=== PATIENT | male | born 1965 | race Caucasian/White ===

== ENCOUNTER 2017-02-04 16:17 | Emergency (ER) | payer OTHER ==
[~2017-02-04] VITALS: Ht 165.1 cm; Wt 110.0 kg
[2017-02-04 16:37] VITALS: BP 156/78; PULSE 80; RESP 18; TEMP 98.1; O2SAT 98
[2017-02-04] MEDS ORDERED: ceFAZolin 2 GM PREMIX 50 ML IV ONE (16:45)
[2017-02-04] MEDS ORDERED: LIDOCAINE HCL 1% 50 ML VIAL INFIL ONE ×2 (16:45)
[2017-02-04] MEDS ORDERED: TETANUS/DIPHTHERIA TOXOID ADULT 0.5 ML VIAL IM ONE (16:45)
[2017-02-04] MEDS ORDERED: ALLO300T2 PO (17:16)
[2017-02-04] MEDS ORDERED: CIPR-9 PO (17:21)
[2017-02-04] MEDS ORDERED: TOBRO LEFT EAR (17:21)
--- NOTE | 2017-02-04 18:29 | RADRPT ---
EXAM DATE/TIME: 02/04/2017 18:04 [place] COMPARISON: No previous studies available for comparison. INDICATIONS : Left hand second digit laceration. Patient states he was cutting a metal pipe. MEDICAL HISTORY : None. SURGICAL HISTORY : None. ENCOUNTER: Initial ACUITY: 1 day PAIN SCORE: 3/10 LOCATION: Left hand, second digit. FINDINGS: Normal bone density. 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 There is soft tissue swe lling identified. No underlying fractures. CONCLUSION: 1. Soft tissue swelling and osteoarthritis. Davie Porter MD on February 04, 2017 at 18:27 Board Certified Radiologist. This report was verified electronically.
[2017-02-04] MEDS ORDERED: CEPH-460 PO (18:44)
[2017-02-04] MEDS ORDERED: HYDR-3533 PO (18:44)
[2017-02-04] MEDS ORDERED: DICL75TA PO (18:44)
--- NOTE | 2017-02-04 18:54 | PD ---
HPI Chief Complaint: Laceration/Skin Injury Time Seen by Provider: 18:44 Travel History International Travel<30 days: No Contact w/Intl Traveler<30days: No Traveled to known affect area: No History of Present Illness HPI 51-year-old male that presents to the ED for evaluation of laceration to the right side of the face as well as to the left hand. Patient comes here by ambulance for evaluation of this. 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 He denies any other injuries. No loss of consciousness. Does not take blood thinners. Unclear if Up-to-date with tetanus. Patient does have a history of ear infections and is taking currently Cipro and eardrops. No chest pain or shortness of breath. Patient able to move all fingers. He does have a very small superficial laceration to the left index finger on the dorsal aspect of the PIP. Per patient's his pain is 4 out of 10. Patient does have a significant laceration almost 10 cm on the right cheek going all the way to the mouth. Not through and through. Tongue appears to be midline. No other injuries reported. Patient does have a history of chronic eczema. PFSH Social History Alcohol Use: No Tobacco Use: No Substance Use: No Allergies-Medications (Allergen,Severity, Reaction): Coded Allergies: No Known Allergies (Unverified , 02/04/17) Reported Meds & Prescriptions Reported Meds & Active Scripts Active Lortab (Hydrocodone-Acetaminophen) 5-325 Mg Tab 1 Tab PO Q6H PRN Diclofenac Sodium DR (Diclofenac Sodium) 75 Mg Tabdr 75 Mg PO BID PRN Keflex (Cephalexin) 500 Mg Cap 500 Mg PO Q8H 10 Days Reported Cipro (Ciprofloxacin HCl) 500 Mg Tab 500 Mg PO BID Tobradex Opth Drops (Tobramycin/Dexamethasone) 0.3-0.1 % Susp 3-4 Drop LEFT EAR BID Allopurinol 300 Mg Tab 300 Mg PO DAILY Review of Systems Except as stated in HPI: all other systems reviewed are Neg Physical Exam Narrative GENERAL: SKIN: Warm and dry. HEAD: Atraumatic. Normocephalic. EYES: Pupils equal and round. No scleral icterus. No injection or drainage. ENT: No nasal bleeding or discharge. Mucous membranes pink and moist. Tongue is midline. No uvula deviation. NECK: Trachea midline. No JVD. CARDIOVASCULAR: Regular rate and rhythm. No murmurs, S3, S4. RESPIRATORY: No accessory muscle use. Clear to auscultation. Breath sounds equal bilaterally. GASTROINTESTINAL: Abdomen soft, non-tender, nondistended. Hepatic and splenic margins not palpable. MUSCULOSKELETAL: Extremities without clubbing, cyanosis, or edema. No obvious deformities. Full range of motion of the upper and lower extremities bilaterally. 2+ pulses bilaterally. No lumbar, thoracic, cervical spine tenderness to palpation. Patient does have a deep laceration on the right side of the face about 10 cm. Crossing the vermilion border but not through the mouth. Patient able to open the mouth fully. Patient has good sensation in all fingers. No tendon lacerations noted. No vessel, nerve, muscle or tendon laceration noted. No foreign bodies noted. NEUROLOGICAL: Awake and alert. No obvious cranial nerve deficits. Motor grossly within normal limits. Five out of 5 muscle strength in the arms and legs. Normal speech. PSYCHIATRIC: Appropriate mood and affect; insight and judgment normal. Data Data Last Documented VS Vital Signs Date Time Temp Pulse Resp B/P Pulse Ox O2 Delivery O2 Flow Rate FiO2 02/04/17 16:37 98.1 80 18 156/78 98 Orders Tetanus/Diphtheria Tox Adult (Tetanus/Di (02/04/17 16:45) Cefazolin 2 Gm Premix (Ancef 2 Gm Premix (02/04/17 16:45) Wound Care (02/04/17 16:33) Lidocaine 1% Inj (50 Ml) (Xylocaine 1% I (02/04/17 16:45) Lidocaine 1% Inj (50 Ml) (Xylocaine 1% I (02/04/17 16:45) Finger ([id number]) (02/04/17 ) [facility] Medical Decision Making Medical Screen Exam Complete: Yes Emergency Medical Condition: Yes Medical Record Reviewed: Yes Interpretation(s) xray negative Differential Diagnosis Laceration versus abrasion versus foreign body versus bony injury Narrative Course 51-year-old male that presents to the ED for evaluation of lacerations to the right side of the face and the left index finger. Patient was properly examined and was found to have signs and symptoms consistent appears to be lacerations. No sign of bony injury or other disease. My attending Dr. Min came in and evaluated the patient with me and agrees with plan. She recommends only x-ray of the hand and no facial imaging as patient does appear to have a superficial laceration with no bony involvement. Patient agrees with plan. Patient was given tetanus booster as well as IV antibiotics as per my attendings recommendations. After explained procedure to the patient and he agreed to it lacerations on the left index finger as well as the right side of the face were performed by me as stated in procedure note. Patient was told to get sutures removed in about 10 days. See ED worsening symptoms. Follow up with PCP. Ice to areas of pain. Patient was given a prescription for Keflex, Lortab, diclofenac sodium. See ED for worsening symptoms. Procedures Procedure Narrative LACERATION LOCATION: right facial laceration LENGTH: 10 cm NUMBER OF STITCHES/JOSE JUAN: 34 sutures (superficial), 6 sutures deep REPAIR: The area of the laceration was prepped with Betadine and sterilely draped. The laceration was infiltrated with 1% Xylocaine. The wound was copiously irrigated and explored without evidence of foreign body, tendon injury or neurovascular injury. The wound was closed using 5-0 Vycril and 5-0 Ethilone. This was a 2 layer repair. A sterile dressing was applied. The patient was advised to keep the dressing clean and dry. Patient tolerated the procedure well. LACERATION LOCATION: left index finger LENGTH: 1 cm NUMBER OF STITCHES/JOSE JUAN: 4 sutures REPAIR: The area of the laceration was prepped with Betadine and sterilely draped. The laceration was infiltrated with 1% Xylocaine. The wound was copiously irrigated and explored without evidence of foreign body, tendon injury or neurovascular injury. The wound was closed using 4-0 Prolene. This was a 1 layer repair. A sterile dressing was applied. The patient was advised to keep the dressing clean and dry. Patient tolerated the procedure well. Diagnosis Primary Impression: Facial laceration Qualified Code: S01.81XA - Facial laceration, initial encounter Additional Impression: Laceration of left index finger Qualified Code: S61.211A - Laceration of left index finger without foreign body without damage to nail, initial encounter Patient Instructions: General Instructions Departure Forms: Tests/Procedures, Work Release Enter return to work date: Feb 11, 2017 Additional Instructions: Wound care daily with soap and water. You can apply bandaid if needed. Neosporyn or OTC antibiotic ointment to area as needed twice a day for at least 2 weeks to help with scarring and prevent infection. Meoderma OTC for scarring if needed. Avoid sun exposure for 2 months as the sun could make scar darker and more noticeable. Get sutures removed in 10-14 days. See ED if worst. Med/Other Pt SpecificInfo: Prescription(s) given Scripts Hydrocodone-Acetaminophen (Lortab)5-325 Mg Tab1 Tab PO Q6H PRN (PAIN) #20 TAB Prov:Serafin Min MD 02/04/[address] 75 Mg Tabdr75 Mg PO BID PRN (PAIN SCALE 1 TO 10) #60 TAB Ref 0 Prov:Serafin Min MD 02/04/17 Cephalexin (Keflex)500 Mg Lsr499 Mg PO Q8H 10 Days Ref 0 Prov:Serafin Min MD 02/04/17 Disposition: 01 DISCHARGE HOME Condition: Stable Ian Mast Feb 04, 2017 18:54
== END 2017-02-04 19:56 | disposition home or self-care (01) ==
LOC: NEPE 16:17
DX: S61.211A Laceration without foreign body of left index finger without damage to nail, initial encounter (principal); S01.511A Laceration without foreign body of lip, initial encounter; W31.2XXA Contact with powered woodworking and forming machines, initial encounter; Z79.899 Other long term (current) drug therapy; Z23 Encounter for immunization
CPT/HCPCS: 12001; 12054; 73140; 90471; 90714; 96374; 99284; J0690